=== PATIENT | male | born 1975 | race Caucasian/White ===

== ENCOUNTER 2020-09-26 09:46 | Emergency (ER) | payer MEDICAID, OTHER ==
[2020-09-26] MEDS ORDERED: Sodium Chloride 0.9% 10 ML Syringe FLUSH PRN (10:01)
[2020-09-26] MEDS ORDERED: Sodium Chloride 0.9% 2.5 ML Syringe FLUSH PRN (10:01)
[2020-09-26] MEDS ORDERED: Ondansetron 4 MG/2 ML SDV IVPUSH ONE (10:10)
[2020-09-26] MEDS ORDERED: Ketorolac 30 MG/ML SDV IVPUSH ONE (10:10)
--- NOTE | 2020-09-26 10:15 | PCM.EKG ---
#1 Interpretation EKG Interpretation Comments: Heart rate = 100 bpm, sinus tach, normal QRS interval, no STEMI. EKG and rhythm strip interpreted by me at [id number]
--- NOTE | 2020-09-26 10:15 | EDM.PDOC ---
ED HPI GENERAL MEDICAL PROBLEM - General Chief Complaint: Abdominal Pain Stated Complaint: STOMACH ISSUES Time Seen by Provider: 09/26/20 10:01 Source of Information: Reports: Patient History Limitations: Reports: No Limitations - History of Present Illness INITIAL COMMENTS - FREE TEXT/NARRATIVE: HISTORY AND PHYSICAL: History of present illness: Patient is a 44-year-old male who presents emergency room today with concern of abdominal pain, more periumbilical/right upper quadrant that started late last night. Patient states that he has been moving from one house to another and states that he is unsure if he injured his abdominal muscles lifting boxes. Patient states that last night the pain started and has worsened over the night and states he was unable to sleep as a result of the discomfort. Patient states that he does drink alcohol 1 day a week and will binge drink on that 1 day but states that he does not drink any more than that. Patient states that he also uses marijuana and methamphetamine and last used methamphetamine 3 days ago and marijuana 1 week ago. Patient states he does not take any medications and does not have any known health history. Has not taken anything for his symptoms today. Denies any other associated symptoms. Patient denies fever, chills, chest pain, shortness of breath, or cough. Denies headache, neck stiff ness, change in vision, syncope, or near syncope. Denies nausea, vomiting, diarrhea, constipation, or dysuria. Has not noted any blood in urine or stool. Patient has been eating and drinking appropriately. Review of systems: As per history of present illness and below otherwise all systems reviewed and negative. Past medical history: As per history of present illness and as reviewed below otherwise noncontribut ory. Surgical history: As per history of present illness and as reviewed below otherwise noncontributory. Social history: See social history for further information Family history: As per history of present illness and as reviewed below otherwise noncontributory. Physical exam: General: Patient is alert, oriented, and in no acute distress. Patient laying comfortably on exam table. Vitals stable and reviewed by me. HEENT: Atraumatic, normocephalic, pupils equal and reactive bilaterally, negative for conjunctival pallor or scleral icterus, mucous membranes moist, TMs normal bilaterally, throat clear, neck supple, nontender, trachea midline. No drooling or trismus noted. No meningeal signs. No hot potato voice noted. Lungs: Clear to auscultation, breath sounds equal bilaterally, chest nontender. Heart: S1S2, regular rate and rhythm without overt murmur Abdomen: Soft, nondistended, moderate-severe tenderness of the periumbilical/RUQ abdomen with guarding, negative rebound, negative Sena. Negative for masses or hepatosplenomegaly. Negative for costovertebral tenderness. Pelvis: Stable nontender. Genitourinary: Deferred. Rectal: Deferred. Skin: Intact, warm, dry. No lesions or rashes noted. Extremities: Atraumatic, negative for cords or calf pain. Neurovascular unremarkable. Neuro: Awake, alert, oriented. Cranial nerves II through XII unremarkable. Cerebellum unremarkable. Motor and sensory unremarkable throughout. Exam nonfocal. Notes: Reevaluation of patient, he is more comfortable following therapeutics given today in the ED. Patient remains vitally stable throughout stay in ED. He does not have any episodes of vomiting today in the ED. I did call and speak to Dr. Hinkle, general surgery economics professor, who recommends getting patient set up with an MRCP to assess for stone of the gallbladder/possible admission to get an MRCP performed. I called MRI who is able to get patient in for an MRCP at 13:[address] Hinkle has reviewed all of patients labwork/imaging and would like to see patient in his office immediately following discharge from he ED. Voices understanding and is agreeable to plan of care. Denies any further questions or concerns at this time. Diagnostics: EKG, CBC, CMP, UA, CXR, Trop, Lipase, Abd/pelvic CT w cont Therapeutics: NS, Toradol, Zofran, Morphine Prescription: None Impression: Abdominal pain, RUQ, unspecified Dilated common bile duct, unspecified Plan: 1. Go immediately to Dr. Hinkle's office following discharge from the ED. Return to the ED as needed and as discussed. Definitive disposition and diagnosis as appropriate pending reevaluation and review of above. abd Pain Score (Numeric/FACES): 10 - Related Data Allergies Allergy/AdvReac Type Severity Reaction Status Date / Time No Known Allergies Allergy Verified 09/26/20 09:54 Home Meds: Home Meds . [No Known Home Meds] 09/26/20 [History] Past Medical History - Infectious Disease History Infectious Disease History: Reports: None - Past Surgical History HEENT Surgical History: Reports: Eye Surgery Social & Family History - Tobacco Use Tobacco Use Status *Q: Never Tobacco User - Recreational Drug Use Recreational Drug Use: Yes Recreational Drug Type: Reports: Marijuana/Hashish ED ROS GENERAL - Review of Systems Review Of Systems: Comprehensive ROS is negative, except as noted in HPI. ED EXAM, GENERAL - Physical Exam Exam: See Below (see dictation) Course - Vital Signs Last Recorded V/S: Last Vital Signs Temp 96 F L 09/26/20 09:55 Pulse 99 09/26/20 09:55 Resp 16 09/26/20 09:55 BP 145/98 H 09/26/20 09:55 Pulse Ox 97 09/26/20 09:55 - Orders/Labs/Meds Orders: Active Orders 24 hr Category Date Time Status Cardiac Monitoring [RC] . DIRECTED Care 09/26/20 10:01 Active EKG Documentation Completion [RC] STAT Care 09/26/20 10:01 Active Notify Provider Consults [RC] ASDIRECTED Care 09/26/20 14:33 Active Consult to Physician [CONS] Stat Cons 09/26/20 14:33 Active Sodium Chloride 0.9% [Saline Flush] Med 09/26/20 10:01 Active 10 ml FLUSH ASDIRECTED PRN Sodium Chloride 0.9% [Saline Flush] Med 09/26/20 10:01 Active 2.5 ml FLUSH ASDIRECTED PRN Saline Lock Insert [OM.PC] Stat Oth 09/26/20 10:01 Ordered Medication Orders Sodium Chloride (Saline Flush) 2.5 ml FLUSH ASDIRECTED PRN PRN Reason: Keep Vein Open Last Admin: 09/26/20 10:25 Dose: 2.5 ml Documented by: UNIQUE Sodium Chloride (Saline Flush) 10 ml FLUSH ASDIRECTED PRN PRN Reason: Keep Vein Open Last Admin: 09/26/20 10:25 Dose: 10 ml Documented by: UNIQUE Labs: Laboratory Tests 09/26/20 09/26/20 09/26/20 Range/Units 10:18 10:18 12:28 WBC 8.27 (4.0-11.0) K/uL RBC 5.05 (4.50-5.90) M/uL Hgb 15.0 (13.0-17.0) g/dL Hct 44.0 (38.0-50.0) % MCV 87.1 (80.0-98.0) fL MCH 29.7 (27.0-32.0) pg MCHC 34.1 (31.0-37.0) g/dL RDW Std Deviation 40.7 (28.0-62.0) fl RDW Coeff of Emperatriz 13 (11.0-15.0) % Plt Count 157 (150-400) K/uL MPV 9.70 (7.40-12.00) fL Neut % (Auto) 72.7 (48.0-80.0) % Lymph % (Auto) 15.0 L (16.0-40.0) % [place] % (Auto) 10.8 (0.0-15.0) % Eos % (Auto) 1.0 (0.0-7.0) % Baso % (Auto) 0.5 (0.0-1.5) % Neut # (Auto) 6.0 H (1.4-5.7) K/uL Lymph # (Auto) 1.2 (0.6-2.4) K/uL [place] # (Auto) 0.9 H (0.0-0.8) K/uL Eos # (Auto) 0.1 (0.0-0.7) K/uL Baso # (Auto) 0.0 (0.0-0.1) K/uL Sodium 137 (136-148) mmol/L Potassium 3.5 (3.5-5.1) mmol/L Chloride 100 (98-107) mmol/L Carbon Dioxide 29.3 (21.0-32.0) mmol/L BUN 16 (7.0-18.0) mg/dL Creatinine 1.1 (0.8-1.3) mg/dL Est Cr Clr Drug Dosing 94.21 mL/min Estimated GFR (MDRD) > 60.0 ml/min Glucose 119 H (74-106) mg/dL Calcium 8.8 (8.5-10.1) mg/dL Total Bilirubin 1.8 H (0.2-1.0) mg/dL AST 71 H (15-37) IU/L ALT 98 H (14-63) IU/L Alkaline Phosphatase 103 (46-116) U/L Troponin I < 0.050 (0.000-0.056) ng/mL Total Protein 7.8 (6.4-8.2) g/dL Albumin 3.8 (3.4-5.0) g/dL Globulin 4.0 (2.6-4.0) g/dL Albumin/Globulin Ratio 0.9 (0.9-1.6) Lipase 183 (73-393) U/L Urine Color YELLOW Urine Appearance CLEAR Urine pH 7.0 (5.0-8.0) Ur Specific [place] <= 1.005 (1.001-1.035) Urine Protein NEGATIVE (NEGATIVE) mg/dL Urine Glucose (UA) NEGATIVE (NEGATIVE) mg/dL Urine Ketones 15 H (NEGATIVE) mg/dL Urine Occult Blood NEGATIVE (NEGATIVE) Urine Nitrite NEGATIVE (NEGATIVE) Urine Bilirubin NEGATIVE (NEGATIVE) Urine Urobilinogen >=8.0 H (<2.0) EU/dL Ur Leukocyte Esterase NEGATIVE (NEGATIVE) Meds: Medications Generic Name Dose Route Start Last Admin Trade Name Cristiana PRN Reason Stop Dose Admin Sodium Chloride 2.5 ml 09/26/20 10:01 09/26/20 10:25 Saline Flush FLUSH 2.5 ml ASDIRECTED PRN Administration Keep Vein Open Sodium Chloride 10 ml 09/26/20 10:01 09/26/20 10:25 Saline Flush FLUSH 10 ml ASDIRECTED PRN Administration Keep Vein Open Discontinued Medications Generic Name Dose Route Start Last Admin Trade Name Cristiana PRN Reason Stop Dose Admin Ketorolac Tromethamine 30 mg 09/26/20 10:10 09/26/20 10:25 Toradol IVPUSH 09/26/20 10:11 30 mg ONETIME ONE Administration Morphine Sulfate 4 mg 09/26/20 12:51 09/26/20 14:08 Morphine IVPUSH 09/26/20 12:52 4 mg ONETIME ONE Administration Ondansetron HCl 4 mg 09/26/20 10:10 09/26/20 10:25 Zofran IVPUSH 09/26/20 10:11 4 mg ONETIME ONE Administration Departure - Departure Time of Disposition: 14:08 Disposition: Home, Self-Care 01 Clinical Impression: Right upper quadrant abdominal pain, Dilation of common bile duct - Discharge Information Instructions: Abdominal Pain, Adult, [id number] Referrals: PCP,None [Primary Care Provider] - Forms: ED Department Discharge Additional Instructions: The following information is given to patients seen in the emergency department who are being discharged to home. This information is to outline your options for follow-up care. We provide all patients seen in our emergency department with a follow-up referral. The need for follow-up, as well as the timing and circumstances, are variable depending upon the specifics of your emergency department visit. If you don't have a primary care physician on staff, we will provide you with a referral. We always advise you to contact your personal physician following an emergency department visit to inform them of the circumstance of the visit and for follow-up with them and/or the need for any referrals to a consulting specialist. The emergency department will also refer you to a specialist when appropriate. This referral assures that you have the opportunity for follow-up care with a specialist. All of these measure are taken in an effort to provide you with optimal care, which includes your follow-up. Under all circumstances we always encourage you to contact your private physician who remains a resource for coordinating your care. When calling for follow-up care, please make the office aware that this follow-up is from your recent emergency room visit. If for any reason you are refused follow-up, please contact the [facility] Emergency Department at and asked to speak to the emergency department charge nurse. [facility] [address] [place] [address] [address] [facility] - General Surgery, Dr. Hinkle, 3rd Floor [address] [place] [address], [address] [place] [address] 1. Go immediately to Dr. Hinkle's office following discharge from the ED. Return to the ED as needed and as discussed. Sepsis Event Note (ED) - Evaluation Sepsis Screening Result: No Definite Risk - Focused Exam Vital Signs: Vital Signs Temp Pulse Resp BP Pulse Ox 09/26/20 09:55 96 F L 99 16 145/98 H 97 - My Orders Last 24 Hours: My Active Orders 09/26/20 10:01 Cardiac Monitoring [RC] . DIRECTED EKG Documentation Completion [RC] STAT Sodium Chloride 0.9% [Saline Flush] 10 ml FLUSH ASDIRECTED PRN Sodium Chloride 0.9% [Saline Flush] 2.5 ml FLUSH ASDIRECTED PRN Saline Lock Insert [OM.PC] Stat 09/26/20 14:33 Notify Provider Consults [RC] ASDIRECTED Consult to Physician [CONS] Stat - Assessment/Plan Last 24 Hours: My Active Orders 09/26/20 10:01 Cardiac Monitoring [RC] . DIRECTED EKG Documentation Completion [RC] STAT Sodium Chloride 0.9% [Saline Flush] 10 ml FLUSH ASDIRECTED PRN Sodium Chloride 0.9% [Saline Flush] 2.5 ml FLUSH ASDIRECTED PRN Saline Lock Insert [OM.PC] Stat 09/26/20 14:33 Notify Provider Consults [RC] ASDIRECTED Consult to Physician [CONS] Stat
--- NOTE | 2020-09-26 10:36 | CR ---
INDICATION: Epigastric pain COMPARISON: None TECHNIQUE: Single-view portable chest radiograph FINDINGS: TUBES AND LINES: None. HEART AND MEDIASTINUM: The heart size is normal. The mediastinal contour appears normal for patient age. LUNGS AND PLEURAL SPACES: The lungs appear normal.The pleural spaces are unremarkable. OSSEOUS STRUCTURES: Age-appropriate appearance. No acute focal finding.On this single view AP upright portable chest radiograph, I see no obvious free subdiaphragmatic air. IMPRESSION: No evidence of active pulmonary disease. Dictated by Pankaj Stern MD @ Sep 26 2020 10:33AM Signed by Dr. Pankaj Stern @ Sep 26 2020 10:34AM
[2020-09-26 10:54] LABS: BLOOD UREA NITROGEN,BUN 16 mg/dL (7.0-18.0); CARBON DIOXIDE,CO2 29.3 mmol/L (21.0-32.0); CHLORIDE,CL 100 mmol/L (98-107); GLUCOSE RANDOM 119 mg/dL (74-106); LIPASE 183 U/L (73-393); POTASSIUM,K 3.5 mmol/L (3.5-5.1); SODIUM,NA 137 mmol/L (136-148)
--- NOTE | 2020-09-26 12:12 | CT ---
INDICATION: Periumbilical abdominal pain TECHNIQUE: CT abdomen and pelvis acquired with 100 cc Isovue 370 IV contrast. COMPARISON: None FINDINGS: Lower chest: Unremarkable. Liver: Hepatic steatosis. Spleen: Unremarkable. Pancreas: Unremarkable. Gallbladder and bile ducts: Cholelithiasis. Adrenal glands: Unremarkable. Kidneys: Unremarkable. GI tract: Large amount of feces in the right colon. Appendix is normal. Vascular structures: There are varices in the left upper abdomen. The portal vein is patent. Lymph nodes: Unremarkable. Miscellaneous: Unremarkable. No free air or significant free fluid. Pelvic Organs: Unremarkable. Bones: Unremarkable for age. IMPRESSION: No acute intra-abdominal inflammatory process. Normal appendix. Large amount of feces in the right colon. 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 The portal vein is patent. No splenomegaly. Cholelithiasis. Hepatic steatosis. Please note that all CT scans at this facility use dose modulation, iterative reconstruction, and/or weight-based dosing when appropriate to reduce radiation dose to as low as reasonably achievable. Dictated by Isabel Johnson MD @ Sep 26 2020 12:01PM Signed by Dr. Isabel Johnson @ Sep 26 2020 12:10PM
--- NOTE | 2020-09-26 12:17 | US ---
INDICATION: Upper mid abdominal pain TECHNIQUE: Ultrasound abdomen limited. Sonographic images of the right upper quadrant were obtained using avalos-scale and color Doppler images. COMPARISON: CT abdomen and pelvis from today FINDINGS: Liver: Normal in size and echotexture. No masses. No intrahepatic biliary dilatation. Gallbladder: There is gallbladder sludge and cholelithiasis. Normal wall thickness. No pericholecystic fluid. Negative sonographic Sena`s sign. Common bile duct: 7.8 mm. Pancreas: Normal. Right kidney: 12.6 cm. Normal echotexture and cortex. No masses, stones, or hydronephrosis. Vasculature: Proximal abdominal aorta and IVC are normal. IMPRESSION: Cholelithiasis and gallbladder sludge. Common bile duct is mildly dilated. No definite stone seen within the common bile duct. Consider MRCP for further evaluation. No evidence for acute cholecystitis. Dictated by Isabel Johnson MD @ Sep 26 2020 12:12PM Signed by Dr. Isabel Johnson @ Sep 26 2020 12:15PM
[2020-09-26] MEDS ORDERED: Morphine 4 MG/ML Syringe IVPUSH ONE (12:51)
--- NOTE | 2020-09-26 14:03 | MR ---
Indication: Cholelithiasis. Abdominal pain. Technique: MRCP/MRI abdomen without contrast. Comparison: 09/26/[address] Findings: Loss of signal hepatic parenchyma on out of phase images consistent with mild steatosis, hepatic fat fraction of 6 percent. Cholelithiasis. No evidence of acute gallbladder inflammation. No choledocholithiasis identified. Common bile duct measures up to 7 mm. Unremarkable noncontrast appearance of the spleen, pancreas and adrenal glands. Small probable left renal cysts. Impression: 1. Cholelithiasis without evidence acute gallbladder inflammation. 2. No evidence of choledocholithiasis. CBD measures up to 7 mm of uncertain etiology. Recommend GI consultation. 3. Mild hepatic steatosis. Dictated by Mike Devries MD @ Sep 26 2020 1:52PM Signed by Dr. Mike Devries @ Sep 26 2020 2:01PM
[2020-09-26] MEDS ORDERED: Iopamidol 755 MG/ML 500 ML Multipack Bottle IVPUSH STA (19:29)
== END 2020-09-26 14:32 | disposition home or self-care (01) ==
LOC: MW.ED 09:46
DX: K83.8 Other specified diseases of biliary tract (principal)
CPT/HCPCS: 36415; 71045; 74177; 74181; 76705; 80053; 81003; 83690; 84484; 85025; 93005; 96374; 96375; 99284; J1885; J2270; J2405; Q9967; 93010; 99283

== ENCOUNTER 2020-10-04 07:40 | Emergency (ER) | payer MEDICAID ==
[2020-10-04] MEDS ORDERED: LORazepam 2 MG/ML SDV IVPUSH STA (07:56)
[2020-10-04 08:43] LABS: BLOOD UREA NITROGEN,BUN 20 mg/dL (7.0-18.0); CARBON DIOXIDE,CO2 28.7 mmol/L (21.0-32.0); CHLORIDE,CL 103 mmol/L (98-107); GLUCOSE RANDOM 110 mg/dL (74-106); POTASSIUM,K 3.8 mmol/L (3.5-5.1); SODIUM,NA 137 mmol/L (136-148)
[2020-10-04] MEDS ORDERED: Lisinopril 5 MG Tab PO ONE (09:02)
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
== END 2020-10-04 09:54 | disposition home or self-care (01) ==
LOC: MW.ED 07:40
DX: I10 Essential (primary) hypertension (principal); Z79.899 Other long term (current) drug therapy
CPT/HCPCS: 36415; 80053; 84443; 84484; 85025; 93005; 96374; 99283; A9270; J2060; 93010

== ENCOUNTER 2021-01-04 20:40 | Emergency (ER) | payer MEDICAID ==
[2021-01-04 21:53] LABS: BLOOD UREA NITROGEN,BUN 13 mg/dL (7.0-18.0); CARBON DIOXIDE,CO2 31.1 mmol/L (21.0-32.0); CHLORIDE,CL 98 mmol/L (98-107); GLUCOSE RANDOM 156 mg/dL (74-106); LIPASE 107 U/L (73-393); SODIUM,NA 138 mmol/L (136-148)
[2021-01-04] MEDS ORDERED: Sodium Chloride 0.9% 1,000 ML IV ONE (21:58)
[2021-01-04] MEDS ORDERED: Sodium Chloride 0.9% 2.5 ML Syringe FLUSH PRN (21:58)
[2021-01-04] MEDS ORDERED: Sodium Chloride 0.9% 10 ML Syringe FLUSH PRN (21:58)
[2021-01-04] MEDS ORDERED: HYDROmorphone 1 MG/ML Syringe IVPUSH ONE (22:05)
[2021-01-04] MEDS ORDERED: Ketorolac 15 MG/ML SDV IVPUSH ONE (22:05)
[2021-01-04] MEDS ORDERED: Ondansetron 4 MG/2 ML SDV IVPUSH ONE (22:05)
[2021-01-04] MEDS ORDERED: Dicyclomine 10 MG Cap PO ONE (22:05)
[2021-01-04] MEDS ORDERED: Iopamidol 755 MG/ML 500 ML Multipack Bottle IVPUSH STA (22:48)
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
--- NOTE | 2021-01-05 00:01 | CT ---
INDICATION: Right-sided abdominal pain. COMPARISON: 09/26/2020. TECHNIQUE: CT of the abdomen and pelvis with IV contrast. 100 cc [id number]. FINDINGS: Mild bibasilar atelectasis. Hepatic steatosis, and hepatic splenomegaly as seen on prior exam. Cholelithiasis. Prominent common bile duct and pancreatic duct, similar to prior. Adrenal glands are unremarkable. No obstructing renal calculus or hydronephrosis. Small nonobstructing left renal calculus. Subcentimeter renal hypoattenuating lesions are too small to characterize but are similar to prior. Splenorenal collateral vessels are again noted. Abdominal aorta is normal in caliber. Large amount of stool in the colon. The bladder is nondistended. Negative appendix. Trace ascites. No enlarged abdominal or pelvic lymph nodes. Bones are unremarkable for age. IMPRESSION: 1. Large amount of stool in a colon consistent with constipation. 2. Hepatic steatosis and hepatic splenomegaly as seen on prior. Splenorenal collateral vessels are again noted suggestive of portal hypertension. 3. Cholelithiasis. 4. Trace ascites. Please note that all CT scans at this facility use dose modulation, iterative reconstruction, and/or weight-based dosing when appropriate to reduce radiation dose to as low as reasonably achievable. Dictated by Mike Devries MD @ 01/05/2021 12:00:[address] Mike Devries @ Jan 05 2021 12:00AM
[2021-01-05] MEDS ORDERED: Bisacodyl 5 MG Tab PO ONE (00:32)
[2021-01-05] MEDS ORDERED: Magnesium Citrate Solution 296 ML Bottle PO ONE (00:32)
--- NOTE | 2021-01-05 01:12 | US ---
INDICATION: Right-sided abdominal pain. TECHNIQUE: Ultrasound abdomen limited. Sonographic images of the right upper quadrant were obtained using avalos-scale and color Doppler images. COMPARISON: 01/04/2021 CT abdomen pelvis FINDINGS: Liver: Normal in size and echotexture. No masses. No intrahepatic biliary dilatation. Gallbladder: Cholelithiasis. Negative sonographic Sena`s sign. Normal wall thickness. No pericholecystic fluid. Common bile duct: 4 mm. Pancreas: Obscured by bowel gas. Right kidney: Normal in size. Normal echotexture and cortex. No masses, stones, or hydronephrosis. Vasculature: Proximal abdominal aorta and IVC are unremarkable. IMPRESSION: Cholelithiasis without evidence of acute inflammation. Dictated by Mike Devries MD @ 01/05/2021 1:11:[address] Mike Devries @ Jan 05 2021 1:11AM
== END 2021-01-05 01:43 | disposition home or self-care (01) ==
LOC: MW.ED 20:40
DX: K59.00 Constipation, unspecified (principal); I10 Essential (primary) hypertension
CPT/HCPCS: 36415; 74177; 76705; 80053; 81003; 83690; 85025; 96374; 96375; 99284; A9270; J1170; J1885; J2405; J7030; Q9967

== ENCOUNTER 2021-01-05 10:39 | Emergency (ER) | payer MEDICAID ==
[2021-01-05] MEDS ORDERED: Morphine 4 MG/ML Syringe IVPUSH ONE (11:14)
[2021-01-05] MEDS ORDERED: Sodium Chloride 0.9% 1,000 ML IV ONE (11:14)
[2021-01-05] MEDS ORDERED: Magnesium Citrate Solution 296 ML Bottle PO ONE (11:16)
[2021-01-05 12:18] LABS: BLOOD UREA NITROGEN,BUN 8 mg/dL (7.0-18.0); CARBON DIOXIDE,CO2 32.2 mmol/L (21.0-32.0); CHLORIDE,CL 100 mmol/L (98-107); GLUCOSE RANDOM 143 mg/dL (74-106); POTASSIUM,K 4.4 mmol/L (3.5-5.1); SODIUM,NA 138 mmol/L (136-148)
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
== END 2021-01-05 14:13 | disposition home or self-care (01) ==
LOC: MW.ED 10:39
DX: K59.00 Constipation, unspecified (principal)
CPT/HCPCS: 36415; 80053; 85025; 96374; 99283; A9270; J2270; J7030

== ENCOUNTER 2023-04-19 16:35 | Emergency (ER) | payer SELFPAY ==
[2023-04-19] MEDS ORDERED: Lisinopril 10 MG Tab PO ONE (17:57)
== END 2023-04-19 18:18 | disposition home or self-care (01) ==
LOC: MW.ED 16:35
DX: I10 Essential (primary) hypertension (principal); Z76.0 Encounter for issue of repeat prescription
CPT/HCPCS: 71046; 99283; A9270

== ENCOUNTER 2024-05-04 21:43 | Emergency (ER) | payer MEDICAID ==
[2024-05-04 22:19] LABS: BASOPHILS ABSOLUTE AUTO 0.07 K/uL (0.00-0.20); BASOPHILS PERCENT AUTO 0.9 % (0.0-1.0); EOSINOPHILS ABSOLUTE AUTO 0.13 K/uL (0.00-0.45); EOSINOPHILS PERCENT AUTO 1.7 % (0.0-6.0); HEMATOCRIT 42.5 % (42.0-52.0); HEMOGLOBIN 14.6 g/dL (14.0-18.0); IMMATURE GRAN ABSOLUTE AUTO 0.01 K/uL (0.00-0.05); IMMATURE GRAN PERCENT AUTO 0.1 % (0.0-0.4); LYMPHOCYTES ABSOLUTE AUTO 1.84 K/uL (1.00-4.80); LYMPHOCYTES PERCENT AUTO 23.4 % (24.0-44.0); MEAN CORPUSCULAR HEMOGLOBIN 29.7 pg (28.0-32.0); MEAN CORPUSCULAR HGB CONC 34.4 g/dL (32.0-36.0); MEAN CORPUSCULAR VOLUME 86.4 fL (83.0-99.0); MEAN PLATELET VOLUME 9.6 fL (9.4-12.4); MONOCYTES PERCENT AUTO 11.4 % (0.0-8.0); NEUTROPHILS ABSOLUTE AUTO 4.92 K/uL (1.80-7.70); NEUTROPHILS PERCENT AUTO 62.5 % (41.0-71.0); PLATELET COUNT,PLT 147 K/uL (150-400); RED BLOOD CELL COUNT 4.92 M/uL (4.52-5.90); WHITE BLOOD CELL COUNT,WBC 7.87 K/uL (3.9-11.3)
[2024-05-04] MEDS: Sodium Chloride 0.9% 1,000 ML IV ONE (22:37)
[2024-05-04 22:40] LABS: A/G RATIO 0.9 (0.9-1.6); ALBUMIN 3.6 g/dL (3.4-5.0); BILIRUBIN TOTAL 0.8 mg/dL (0.2-1.0); CALCIUM 9.8 mg/dL (8.5-10.1); CARBON DIOXIDE,CO2 33.6 mmol/L (21.0-32.0); PROTEIN TOTAL,TP 7.6 g/dL (6.4-8.2)
[2024-05-04] MEDS: Ondansetron 4 MG/2 ML SDV IVPUSH ONE (22:40)
[2024-05-04] MEDS: Morphine 4 MG/ML Syringe IVPUSH ONE (22:41)
[2024-05-04] MEDS: Sodium Chloride 0.9% 10 ML Syringe FLUSH PRN (22:44)
[2024-05-04] MEDS: Sodium Chloride 0.9% 2.5 ML Syringe FLUSH PRN (22:44)
[2024-05-04 22:51] LABS: APPEARANCE,URINE CLEAR; BILIRUBIN,URINE NEGATIVE (NEGATIVE); COLOR,URINE YELLOW; GLUCOSE,URINE NEGATIVE (NEGATIVE); KETONES,URINE NEGATIVE (NEGATIVE); LEUKOCYTE ESTERASE,URINE NEGATIVE (NEGATIVE); NITRITE,URINE NEGATIVE (NEGATIVE); OCCULT BLOOD,URINE NEGATIVE (NEGATIVE); PH,URINE 6.5 (5.0-8.0); PROTEIN,URINE NEGATIVE (NEGATIVE)
[2024-05-05] MEDS: Ketorolac 30 MG/ML SDV IVPUSH ONE (00:54)
[2024-05-05] MEDS: Acetaminophen/HYDROcodone 325-5 MG Tab PO ONE (00:55)
== END 2024-05-05 01:00 | disposition home or self-care (01) ==
LOC: MW.ED 21:43
DX: R10.9 Unspecified abdominal pain (principal); I10 Essential (primary) hypertension; Z86.73 Personal history of transient ischemic attack (TIA), and cerebral infarction without residual deficits; Z79.899 Other long term (current) drug therapy
CPT/HCPCS: 36415; 71045; 74176; 80053; 81003; 83690; 85025; 96361; 96374; 96375; 99285; A9270; J1885; J2270; J2405; J3490; J7030

== ENCOUNTER 2024-10-21 12:05 | Inpatient (IN) | payer MEDICAID ==
[2024-10-21] MEDS ORDERED: Sodium Chloride 0.9% 10 ML Syringe FLUSH PRN (13:08)
[2024-10-21] MEDS ORDERED: Sodium Chloride 0.9% 2.5 ML Syringe FLUSH PRN (13:08)
[2024-10-21] MEDS ORDERED: Sodium Chloride 0.9% 20 ML SDV IV PRN (13:08)
[2024-10-21] MEDS: Sodium Chloride 0.9% 1,000 ML IV ONE ×2 (13:15→19:45)
[2024-10-21 13:35] LABS: BASOPHILS ABSOLUTE AUTO 0.07 K/uL (0.00-0.20); BASOPHILS PERCENT AUTO 0.7 % (0.0-1.0); EOSINOPHILS ABSOLUTE AUTO 0.19 K/uL (0.00-0.45); EOSINOPHILS PERCENT AUTO 1.8 % (0.0-6.0); HEMATOCRIT 45.7 % (42.0-52.0); HEMOGLOBIN 15.9 g/dL (14.0-18.0); IMMATURE GRAN ABSOLUTE AUTO 0.02 K/uL (0.00-0.05); IMMATURE GRAN PERCENT AUTO 0.2 % (0.0-0.4); LYMPHOCYTES ABSOLUTE AUTO 2.13 K/uL (1.00-4.80); LYMPHOCYTES PERCENT AUTO 20.4 % (24.0-44.0); MEAN CORPUSCULAR HEMOGLOBIN 29.9 pg (28.0-32.0); MEAN CORPUSCULAR HGB CONC 34.8 g/dL (32.0-36.0); MEAN CORPUSCULAR VOLUME 86.1 fL (83.0-99.0); MEAN PLATELET VOLUME 9.9 fL (9.4-12.4); MONOCYTES ABSOLUTE AUTO 1.07 K/uL (0.00-0.80); MONOCYTES PERCENT AUTO 10.3 % (0.0-8.0); NEUTROPHILS ABSOLUTE AUTO 6.94 K/uL (1.80-7.70); NEUTROPHILS PERCENT AUTO 66.6 % (41.0-71.0); PLATELET COUNT,PLT 204 K/uL (150-400); RED BLOOD CELL COUNT 5.31 M/uL (4.52-5.90); WHITE BLOOD CELL COUNT,WBC 10.42 K/uL (3.9-11.3)
[2024-10-21 14:00] LABS: A/G RATIO 0.8 (0.9-1.6); ALBUMIN 3.5 g/dL (3.4-5.0); BILIRUBIN TOTAL 1.6 mg/dL (0.2-1.0); CALCIUM 9.1 mg/dL (8.5-10.1); CARBON DIOXIDE,CO2 25.5 mmol/L (21.0-32.0); EST CRCL DRUG DOSING (CG) 104.89 mL/min; MAGNESIUM 1.5 mg/dL (1.8-2.4); POTASSIUM,K 3.7 mmol/L (3.5-5.1)
[2024-10-21 14:02] LABS: LACTIC ACID 0.7 mmol/L (0.4-2.0)
[2024-10-21] MEDS ORDERED: Magnesium Sulfate (4.06 MEQ/ML) 5 GM/10 ML SDV IV ONE (14:15)
[2024-10-21] MEDS: Magnesium Sulf/Wat 2 GM/50 mL 2 GM in Premix Bag 1 BAG IV ONE (14:28)
[2024-10-21] MEDS: Acetaminophen/HYDROcodone 325-5 MG Tab PO ONE (17:20)
[2024-10-21] MEDS: Sulfamethoxazole/Trimethoprim 800-160 MG Tab PO ONE (17:20)
[2024-10-21] MEDS: Iopamidol 755 MG/ML 500 ML Multipack Bottle IVPUSH STA (18:38)
[2024-10-21 19:23] LABS: APPEARANCE,URINE CLEAR; BILIRUBIN,URINE NEGATIVE (NEGATIVE); COLOR,URINE YELLOW; GLUCOSE,URINE NEGATIVE (NEGATIVE); KETONES,URINE NEGATIVE (NEGATIVE); LEUKOCYTE ESTERASE,URINE NEGATIVE (NEGATIVE); NITRITE,URINE NEGATIVE (NEGATIVE); OCCULT BLOOD,URINE NEGATIVE (NEGATIVE); PROTEIN,URINE NEGATIVE (NEGATIVE)
[2024-10-21 19:33] LABS: AMPHETAMINES SCREEN, URINE PRESUMPTIVE POSITIVE (CUTOFF=500); BARBITURATE SCREEN,URINE NEGATIVE (CUTOFF=200); BENZODIAZEPINES SCREEN,URINE NEGATIVE (CUTOFF=150); BUPRENORPHINE SCREEN,URINE NEGATIVE (CUTOFF=10); METHADONE SCREEN, URINE NEGATIVE (CUTOFF=200); METHAMPHETAMINES SCREEN, URINE PRESUMPTIVE POSITIVE (CUTOFF=500); OXYCODONE SCREEN,URINE NEGATIVE (CUT0FF=100); PCP SCREEN,URINE NEGATIVE (CUTOFF=25); THC SCREEN,URINE 20 NG/ML NEGATIVE (CUTOFF=50)
[2024-10-21] MEDS: VANCOmycin 2 GM/400 ML 2 GM in Premix Bag 1 BAG IV ONE (21:42)
[2024-10-22 07:03] LABS: BASOPHILS ABSOLUTE AUTO 0.06 K/uL (0.00-0.20); BASOPHILS PERCENT AUTO 1.1 % (0.0-1.0); EOSINOPHILS ABSOLUTE AUTO 0.33 K/uL (0.00-0.45); EOSINOPHILS PERCENT AUTO 6.2 % (0.0-6.0); HEMATOCRIT 40.6 % (42.0-52.0); HEMOGLOBIN 13.7 g/dL (14.0-18.0); IMMATURE GRAN ABSOLUTE AUTO 0.01 K/uL (0.00-0.05); IMMATURE GRAN PERCENT AUTO 0.2 % (0.0-0.4); LYMPHOCYTES ABSOLUTE AUTO 1.45 K/uL (1.00-4.80); LYMPHOCYTES PERCENT AUTO 27.2 % (24.0-44.0); MEAN CORPUSCULAR HEMOGLOBIN 29.5 pg (28.0-32.0); MEAN CORPUSCULAR HGB CONC 33.7 g/dL (32.0-36.0); MEAN CORPUSCULAR VOLUME 87.3 fL (83.0-99.0); MEAN PLATELET VOLUME 9.9 fL (9.4-12.4); MONOCYTES ABSOLUTE AUTO 0.53 K/uL (0.00-0.80); MONOCYTES PERCENT AUTO 9.9 % (0.0-8.0); NEUTROPHILS ABSOLUTE AUTO 2.96 K/uL (1.80-7.70); NEUTROPHILS PERCENT AUTO 55.4 % (41.0-71.0); PLATELET COUNT,PLT 163 K/uL (150-400); RED BLOOD CELL COUNT 4.65 M/uL (4.52-5.90); WHITE BLOOD CELL COUNT,WBC 5.34 K/uL (3.9-11.3)
[2024-10-22 07:49] LABS: A/G RATIO 0.7 (0.9-1.6); ALBUMIN 2.8 g/dL (3.4-5.0); BILIRUBIN TOTAL 0.7 mg/dL (0.2-1.0); CALCIUM 7.8 mg/dL (8.5-10.1); CARBON DIOXIDE,CO2 25.6 mmol/L (21.0-32.0); EST CRCL DRUG DOSING (CG) 105.63 mL/min; MAGNESIUM 1.6 mg/dL (1.8-2.4); POTASSIUM,K 3.5 mmol/L (3.5-5.1); PROTEIN TOTAL,TP 6.6 g/dL (6.4-8.2)
[2024-10-22] MEDS: VANCOmycin 1.25 GM in Sodium Chloride 0.9% 250 ML IV SCH ×2 (07:57→16:02)
[2024-10-22] MEDS ORDERED: Non-Formulary Medication 1 Each (Amlodipine 10 MG Tablet) PO SCH (10:30)
[2024-10-22 10:59] LABS: HEMOGLOBIN A1C 6.1 %
[2024-10-22] MEDS: oxyCODONE 5 MG Tab PO PRN (16:09)
[2024-10-23] MEDS: Ibuprofen 400 MG Tab PO PRN (04:57)
[2024-10-23 06:19] LABS: BASOPHILS ABSOLUTE AUTO 0.04 K/uL (0.00-0.20); BASOPHILS PERCENT AUTO 0.9 % (0.0-1.0); EOSINOPHILS ABSOLUTE AUTO 0.32 K/uL (0.00-0.45); EOSINOPHILS PERCENT AUTO 7.1 % (0.0-6.0); HEMATOCRIT 39.5 % (42.0-52.0); HEMOGLOBIN 13.6 g/dL (14.0-18.0); IMMATURE GRAN ABSOLUTE AUTO 0.01 K/uL (0.00-0.05); IMMATURE GRAN PERCENT AUTO 0.2 % (0.0-0.4); LYMPHOCYTES ABSOLUTE AUTO 1.54 K/uL (1.00-4.80); LYMPHOCYTES PERCENT AUTO 34.3 % (24.0-44.0); MEAN CORPUSCULAR HEMOGLOBIN 29.9 pg (28.0-32.0); MEAN CORPUSCULAR HGB CONC 34.4 g/dL (32.0-36.0); MEAN CORPUSCULAR VOLUME 86.8 fL (83.0-99.0); MEAN PLATELET VOLUME 9.9 fL (9.4-12.4); MONOCYTES ABSOLUTE AUTO 0.55 K/uL (0.00-0.80); MONOCYTES PERCENT AUTO 12.2 % (0.0-8.0); NEUTROPHILS ABSOLUTE AUTO 2.03 K/uL (1.80-7.70); NEUTROPHILS PERCENT AUTO 45.3 % (41.0-71.0); PLATELET COUNT,PLT 162 K/uL (150-400); RED BLOOD CELL COUNT 4.55 M/uL (4.52-5.90); WHITE BLOOD CELL COUNT,WBC 4.49 K/uL (3.9-11.3)
[2024-10-23 06:44] LABS: CALCIUM 8.5 mg/dL (8.5-10.1); CARBON DIOXIDE,CO2 24.4 mmol/L (21.0-32.0); CREATININE 0.9 mg/dL (0.8-1.3); EST CRCL DRUG DOSING (CG) 117.36 mL/min; POTASSIUM,K 3.7 mmol/L (3.5-5.1)
[2024-10-23] MEDS ORDERED: Sodium Chloride 0.9% 10 ML Syringe FLUSH PRN (09:55)
[2024-10-23] MEDS ORDERED: Sodium Chloride 0.9% 2.5 ML Syringe FLUSH PRN (09:55)
[2024-10-23] MEDS: Docusate Sodium 100 MG Cap PO PRN (12:57)
[2024-10-23] MEDS: amLODIPine 5 MG Tab PO SCH (12:58)
[2024-10-23] MEDS: VANCOmycin 1 GM in Sodium Chloride 0.9% 250 ML IV SCH (16:20)
[2024-10-23] MEDS: Acetaminophen 325 MG Tab PO PRN (22:49)
[2024-10-24 06:04] LABS: BASOPHILS ABSOLUTE AUTO 0.05 K/uL (0.00-0.20); BASOPHILS PERCENT AUTO 1.2 % (0.0-1.0); EOSINOPHILS ABSOLUTE AUTO 0.33 K/uL (0.00-0.45); EOSINOPHILS PERCENT AUTO 7.6 % (0.0-6.0); HEMATOCRIT 39.5 % (42.0-52.0); HEMOGLOBIN 13.6 g/dL (14.0-18.0); IMMATURE GRAN ABSOLUTE AUTO 0.01 K/uL (0.00-0.05); IMMATURE GRAN PERCENT AUTO 0.2 % (0.0-0.4); LYMPHOCYTES ABSOLUTE AUTO 1.47 K/uL (1.00-4.80); MEAN CORPUSCULAR HEMOGLOBIN 29.8 pg (28.0-32.0); MEAN CORPUSCULAR HGB CONC 34.4 g/dL (32.0-36.0); MEAN CORPUSCULAR VOLUME 86.4 fL (83.0-99.0); MEAN PLATELET VOLUME 9.3 fL (9.4-12.4); MONOCYTES ABSOLUTE AUTO 0.54 K/uL (0.00-0.80); MONOCYTES PERCENT AUTO 12.5 % (0.0-8.0); NEUTROPHILS ABSOLUTE AUTO 1.92 K/uL (1.80-7.70); NEUTROPHILS PERCENT AUTO 44.5 % (41.0-71.0); PLATELET COUNT,PLT 151 K/uL (150-400); RED BLOOD CELL COUNT 4.57 M/uL (4.52-5.90); WHITE BLOOD CELL COUNT,WBC 4.32 K/uL (3.9-11.3)
[2024-10-24 06:38] LABS: CALCIUM 8.8 mg/dL (8.5-10.1); EST CRCL DRUG DOSING (CG) 105.63 mL/min; MAGNESIUM 1.7 mg/dL (1.8-2.4); POTASSIUM,K 3.9 mmol/L (3.5-5.1)
[2024-10-24] MEDS: Magnesium Sulf/Wat 2 GM/50 mL 2 GM in Premix Bag 1 BAG IV ONE (09:17)
[2024-10-24] MEDS ORDERED: Polyethylene Glycol 3350 Powder 17 GM Packet PO PRN (12:05)
[2024-10-25 05:49] LABS: BASOPHILS ABSOLUTE AUTO 0.06 K/uL (0.00-0.20); BASOPHILS PERCENT AUTO 1.3 % (0.0-1.0); EOSINOPHILS ABSOLUTE AUTO 0.32 K/uL (0.00-0.45); EOSINOPHILS PERCENT AUTO 6.7 % (0.0-6.0); HEMATOCRIT 39.6 % (42.0-52.0); HEMOGLOBIN 13.8 g/dL (14.0-18.0); IMMATURE GRAN ABSOLUTE AUTO 0.01 K/uL (0.00-0.05); IMMATURE GRAN PERCENT AUTO 0.2 % (0.0-0.4); LYMPHOCYTES ABSOLUTE AUTO 1.39 K/uL (1.00-4.80); MEAN CORPUSCULAR HEMOGLOBIN 29.9 pg (28.0-32.0); MEAN CORPUSCULAR HGB CONC 34.8 g/dL (32.0-36.0); MEAN CORPUSCULAR VOLUME 85.7 fL (83.0-99.0); MEAN PLATELET VOLUME 9.2 fL (9.4-12.4); MONOCYTES ABSOLUTE AUTO 0.54 K/uL (0.00-0.80); MONOCYTES PERCENT AUTO 11.3 % (0.0-8.0); NEUTROPHILS ABSOLUTE AUTO 2.48 K/uL (1.80-7.70); NEUTROPHILS PERCENT AUTO 51.5 % (41.0-71.0); PLATELET COUNT,PLT 163 K/uL (150-400); RED BLOOD CELL COUNT 4.62 M/uL (4.52-5.90)
[2024-10-25 06:09] LABS: CALCIUM 8.7 mg/dL (8.5-10.1); CARBON DIOXIDE,CO2 28.8 mmol/L (21.0-32.0); CREATININE 0.9 mg/dL (0.8-1.3); EST CRCL DRUG DOSING (CG) 117.36 mL/min; POTASSIUM,K 4.1 mmol/L (3.5-5.1)
[2024-10-25] MEDS ORDERED: Amoxicillin 250 MG Cap PO ONE (08:57)
[2024-10-25] MEDS: Amoxicillin 500 MG Cap PO ONE (10:16)
== END 2024-10-25 10:24 | disposition home or self-care (01) | DRG 603 ==
LOC: MW.ED 12:05 → MW.MS 19:36
PROVIDERS: ADMIT Internal Medicine; ATTEND Internal Medicine
DX: L03.211 Cellulitis of face (principal); R78.81 Bacteremia; I10 Essential (primary) hypertension; B96.89 Other specified bacterial agents as the cause of diseases classified elsewhere; Z87.81 Personal history of (healed) traumatic fracture; Z86.73 Personal history of transient ischemic attack (TIA), and cerebral infarction without residual deficits; Z98.49 Cataract extraction status, unspecified eye
CPT/HCPCS: 36415; 70487; 70487-26; 80048; 80053; 80202; 80305; 81003; 83036; 83605; 83735; 84100; 85025; 87040; 87077; 87186; 87428-QW; 87641; 96361; 96365; 99284; 99284-25; A9270-GY; J0457; J3371; J3372; J3475; J3490; J7030; J7050; Q9967

== ENCOUNTER 2025-02-25 18:39 | Observation (INO) | payer MEDICAID ==
[2025-02-25] MEDS ORDERED: Sodium Chloride 0.9% 2.5 ML Syringe FLUSH PRN (18:49)
[2025-02-25] MEDS ORDERED: Sodium Chloride 0.9% 10 ML Syringe FLUSH PRN (18:49)
[2025-02-25 18:56] LABS: BASOPHILS ABSOLUTE AUTO 0.08 K/uL (0.00-0.20); BASOPHILS PERCENT AUTO 1.1 % (0.0-1.0); EOSINOPHILS ABSOLUTE AUTO 0.25 K/uL (0.00-0.45); EOSINOPHILS PERCENT AUTO 3.6 % (0.0-6.0); IMMATURE GRAN ABSOLUTE AUTO 0.01 K/uL (0.00-0.05); IMMATURE GRAN PERCENT AUTO 0.1 % (0.0-0.4); LYMPHOCYTES ABSOLUTE AUTO 2.18 K/uL (1.00-4.80); LYMPHOCYTES PERCENT AUTO 31.2 % (24.0-44.0); MEAN PLATELET VOLUME 10.2 fL (9.4-12.4); MONOCYTES ABSOLUTE AUTO 0.71 K/uL (0.00-0.80); MONOCYTES PERCENT AUTO 10.2 % (0.0-8.0); NEUTROPHILS ABSOLUTE AUTO 3.75 K/uL (1.80-7.70); NEUTROPHILS PERCENT AUTO 53.8 % (41.0-71.0); NRBC ABSOLUTE 0.00 K/uL (0.00-0.02); NRBC PERCENT 0.0 /100WBC (0.0-0.2); PLATELET COUNT,PLT 168 K/uL (150-400); RED BLOOD CELL COUNT 5.00 M/uL (4.52-5.90); WHITE BLOOD CELL COUNT,WBC 6.98 K/uL (3.9-11.3)
[2025-02-25] MEDS: Iopamidol 755 Mg/ML 100 ML Bottle IVPUSH ONE (19:06)
[2025-02-25 19:09] LABS: INR 1.26 (0.86-1.11)
[2025-02-25 19:26] LABS: A/G RATIO 1.0 (0.9-1.6); ALANINE AMINOTRANSFERASE,ALT 99 IU/L (14-63); ASPARTATE AMNIOTRANSFERASE,AST 61 IU/L (15-37); BILIRUBIN TOTAL 1.0 mg/dL (0.2-1.0); BLOOD UREA NITROGEN,BUN 17 mg/dL (7.0-18.0); CARBON DIOXIDE,CO2 26.4 mmol/L (21.0-32.0); CHLORIDE,CL 103 mmol/L (98-107); CREATININE 1.3 mg/dL (0.8-1.3); ETHANOL BLOOD MEDICAL <3 mg/dL; GLUCOSE RANDOM 108 mg/dL (74-106); POTASSIUM,K 3.7 mmol/L (3.5-5.1); PROTEIN TOTAL,TP 7.9 g/dL (6.4-8.2); SODIUM,NA 142 mmol/L (136-148)
[2025-02-25 19:27] LABS: ESTIMATED GFR 67 mL/min (>60)
[2025-02-25 20:55] LABS: AMPHETAMINES SCREEN, URINE NEGATIVE (CUTOFF=500); BUPRENORPHINE SCREEN,URINE NEGATIVE (CUTOFF=10); METHADONE SCREEN, URINE NEGATIVE (CUTOFF=200); METHAMPHETAMINES SCREEN, URINE NEGATIVE (CUTOFF=500); OXYCODONE SCREEN,URINE NEGATIVE (CUT0FF=100); PCP SCREEN,URINE NEGATIVE (CUTOFF=25); THC SCREEN,URINE 20 NG/ML NEGATIVE (CUTOFF=50)
[2025-02-25] MEDS ORDERED: Ondansetron 4 MG/2 ML SDV IVPUSH PRN (22:46)
[2025-02-26 05:27] LABS: BASOPHILS ABSOLUTE AUTO 0.04 K/uL (0.00-0.20); BASOPHILS PERCENT AUTO 0.8 % (0.0-1.0); EOSINOPHILS ABSOLUTE AUTO 0.27 K/uL (0.00-0.45); EOSINOPHILS PERCENT AUTO 5.2 % (0.0-6.0); IMMATURE GRAN ABSOLUTE AUTO 0.01 K/uL (0.00-0.05); IMMATURE GRAN PERCENT AUTO 0.2 % (0.0-0.4); LYMPHOCYTES ABSOLUTE AUTO 1.85 K/uL (1.00-4.80); LYMPHOCYTES PERCENT AUTO 35.7 % (24.0-44.0); MEAN PLATELET VOLUME 10.2 fL (9.4-12.4); MONOCYTES ABSOLUTE AUTO 0.35 K/uL (0.00-0.80); MONOCYTES PERCENT AUTO 6.8 % (0.0-8.0); NEUTROPHILS ABSOLUTE AUTO 2.66 K/uL (1.80-7.70); NEUTROPHILS PERCENT AUTO 51.3 % (41.0-71.0); NRBC ABSOLUTE 0.00 K/uL (0.00-0.02); NRBC PERCENT 0.0 /100WBC (0.0-0.2); PLATELET COUNT,PLT 118 K/uL (150-400); RED BLOOD CELL COUNT 4.73 M/uL (4.52-5.90); WHITE BLOOD CELL COUNT,WBC 5.18 K/uL (3.9-11.3)
[2025-02-26 05:47] LABS: BLOOD UREA NITROGEN,BUN 18.0 mg/dL (7.0-18.0); CARBON DIOXIDE,CO2 27.2 mmol/L (21.0-32.0); CHLORIDE,CL 102.0 mmol/L (98-107); CHOLESTEROL HDL 48.0 mg/dL (40-60); CHOLESTEROL LDL CALCULATED 57.0 mg/dL (60-180); CHOLESTEROL TOTAL 131.0 mg/dL (50-200); CREATININE 1.1 mg/dL (0.8-1.3); EST CRCL DRUG DOSING (CG) 94.39 mL/min; GLUCOSE RANDOM 164.0 mg/dL (74-106); POTASSIUM,K 3.0 mmol/L (3.5-5.1); SODIUM,NA 140.0 mmol/L (136-148); VLDL CHOLESTEROL 25.0 mg/dL (5-55)
[2025-02-26 05:49] LABS: ESTIMATED GFR 81.0 mL/min (>60)
[2025-02-26] MEDS ORDERED: Potassium Chloride 20 MEQ Tab.ER PO ONE (08:03)
[2025-02-26] MEDS: Potassium Chloride 20 MEQ Tab.ER PO SCH (09:53)
[2025-02-26] MEDS: LORazepam 2 MG/ML SDV IVPUSH ONE (11:45)
[2025-02-26] MEDS: Gadoteridol 279.3 MG/ML 20 ML SDV IVPUSH ONE (12:00)
[2025-03-02 22:06] LABS: B2GLYCPRT1 IGG AB <10 SGU (<=20); B2GLYCPRT1 IGM AB <10 SMU (<=20); PROT C FUNCTIONAL 62 % (83-168); PROT S FUNCTIONAL 64 % (66-143)
[2025-03-02 23:07] LABS: AT III ANTIGEN 66 % (82-136); AT III ENZYMATIC 83 % (76-128)
== END 2025-02-27 12:40 | disposition home or self-care (01) ==
LOC: MW.ED 18:39 → MW.MS 20:09
PROVIDERS: ADMIT Family Medicine; ATTEND Family Medicine
DX: G45.9 Transient cerebral ischemic attack, unspecified (principal); R47.81 Slurred speech; R20.2 Paresthesia of skin; I10 Essential (primary) hypertension; Z86.73 Personal history of transient ischemic attack (TIA), and cerebral infarction without residual deficits; Z79.82 Long term (current) use of aspirin; Z79.899 Other long term (current) drug therapy
CPT/HCPCS: 36415; 70450; 70496; 70498; 70553; 71045; 80048; 80053; 80061; 80305; 80307; 81240; 81241; 81291; 82947; 83036; 84484; 85025; 85300; 85301; 85303; 85306; 85610; 85613; 85730; 86146; 86147; 93005; 93306; 96374; 99285; A9270; G0378; J2060; Q9967; 99222; 99232; 99238; 99284